=== PATIENT | male | born 1935 | race Caucasian/White ===

== ENCOUNTER → 2020-07-17 | Outpatient (CLI) | payer MEDICARE ==
[~2020-07-17] MED LIST: SIMV10 PO
== END | disposition home or self-care (01) ==
LOC: LAB SHORT 09:21 → LAB 09:21
DX: D22.62 Melanocytic nevi of left upper limb, including shoulder (principal); D48.5 Neoplasm of uncertain behavior of skin
CPT/HCPCS: 88305

== ENCOUNTER 2023-02-11 11:43 | Observation (INO) | payer MEDICARE ==
[~2023-02-11] VITALS: Ht 180.3 cm; Wt 76.5 kg
[2023-02-11] MEDS ORDERED: Acetaminophen650 M1 PO (12:17)
[2023-02-11] MEDS ORDERED: CALCIUM 600 +1 EA11 PO (12:18)
[2023-02-11] MEDS ORDERED: BISA5EC PO (12:18)
[2023-02-11] MEDS ORDERED: LIDO700A20 TOP (12:19)
[2023-02-11] MEDS ORDERED: MELA3 PO (12:19)
[2023-02-11] MEDS ORDERED: FOLI1 PO (12:19)
[2023-02-11] MEDS ORDERED: METO25ER PO (12:20)
[2023-02-11] MEDS ORDERED: MIRALAX17 GM PO (12:20)
[2023-02-11] MEDS ORDERED: MUPIROCIN1 G1 TOP (12:20)
[2023-02-11] MEDS ORDERED: SENNA LAXATIVE8.6 MG PO (12:21)
[2023-02-11] MEDS ORDERED: RAME8 PO (12:21)
[2023-02-11] MEDS ORDERED: ZOCOR20 MG PO (12:21)
[2023-02-11] MEDS ORDERED: TAMS.4ER PO (12:21)
[2023-02-11] MEDS ORDERED: RISP.25 PO (12:21)
[2023-02-11] MEDS ORDERED: B-12500 MC2 PO (12:22)
[2023-02-11] MEDS ORDERED: VITAMIN D31250 MC2 PO (12:22)
[2023-02-11] MEDS ORDERED: XARELTO20 MG PO (12:23)
[2023-02-11 13:04] LABS: BASOPHILS ABSOLUTE AUTO 0.01 K/mm3 (0.00-0.23); BASOPHILS PERCENT AUTO 0 % (0-2); EOSINOPHILS ABSOLUTE AUTO 0.05 K/mm3 (0.00-0.68); EOSINOPHILS PERCENT AUTO 1 % (0-6); Hematocrit 39.1 % (37.0-53.0); Hemoglobin 13.4 g/dL (13.5-17.5); IMMATURE GRAN ABSOLUTE AUTO 0.02 K/mm3 (0.00-0.10); IMMATURE GRAN PERCENT AUTO 0 % (0-1); LYMPHOCYTES ABSOLUTE AUTO 2.14 K/mm3 (0.84-5.20); LYMPHOCYTES PERCENT AUTO 36 % (21-46); MONOCYTES ABSOLUTE AUTO 0.48 K/mm3 (0.16-1.47); MONOCYTES PERCENT AUTO 8 % (4-13); Mean Corpuscular HGB 31.3 pg (26.0-34.0); Mean Corpuscular HGB Conc 34.3 g/dL (31.5-36.5); Mean Corpuscular Volume 91 fL (80-100); Mean Platelet Volume 10.9 fL (9.1-12.4); NEUTROPHILS ABSOLUTE AUTO 3.19 K/mm3 (1.96-9.15); NEUTROPHILS PERCENT AUTO 54 % (41-73); Platelet Count 217 K/mm3 (150-400); RDW Coefficient Variation 14.3 % (11.7-14.2); RDW Standard Deviation 47.8 fL (35.1-46.3); Red Blood Cell Count 4.28 M/mm3 (4.30-5.90); White Blood Cell Count 5.89 K/mm3 (4.00-11.30)
[2023-02-11 13:28] LABS: International Normalized Ratio 1.28; Prothrombin Time Results 13.3 Sec (9.7-11.5)
[2023-02-11 13:31] LABS: Albumin, Blood 3.4 g/dL (3.4-5.0); Albumin/Globulin Ratio 1.1 (0.8-1.8); Bilirubin, Total 0.9 mg/dL (0.1-1.0); Bun/Creatinine Ratio 20.3 (12.0-20.0); Calcium, Blood 8.8 mg/dL (8.5-10.1); Creatinine, Blood 1.18 mg/dL (0.60-1.20); Magnesium, Blood 2.1 mg/dL (1.6-2.4); Phosphorus, Blood 2.8 mg/dL (2.5-4.9); Potassium, Blood 4.1 mmol/L (3.5-5.5); Thyroid Stimulating Hormone 1.36 uIU/mL (0.360-4.800); Total Protein, Blood 6.4 g/dL (6.4-8.2)
--- NOTE | 2023-02-11 16:44 | NUR ---
REPORT RECEIVED FROM GIULIANO HESTER AT 1640. AWAITING ARRIVAL TO ROOM 304 AT THIS TIME.
[2023-02-11 17:11] VITALS: BP 183/95
[2023-02-11] MEDS ORDERED: Vitamin D1000 UNI1 PO (17:35)
--- NOTE | 2023-02-11 19:34 | NUR ---
SHIFT SUMMARY PT AXO, PLEASANT AND COOPERATIVE WITH CARE THOUGH [place]. ADMITTED THIS SHIFT. PT UP WITH 1 ASSIST, FWW AND GB. REPORT GIVEN TO PARKING GARAGE MANAGER NURSE WHO ASSUMES CARE AT THIS TIME. IV PATENT AND INFUSING PER EMAR. BED IN LOW POSITION, CALL LIGHT WITHIN REACH. BED ALARM ON FOR SAFETY. PT DENIES IGNITION SOURCES. PHOTOS OF WOUNDS IN CHART.
[2023-02-11 20:58] VITALS: BP 152/60
[2023-02-12 03:46] VITALS: BP 122/56
--- NOTE | 2023-02-12 04:43 | NUR ---
PT AOX4 AND COOPERATIVE OF CARE. PT DOING WELL AND RESTING MOST OF THE NIGHT IN BED. PT TREATED FOR BODY PAIN FROM FALLING PER EMAR. ABLE TO CALL APPROPRIATELY. WILL CONTINUE TO MONITOR.
--- NOTE | 2023-02-12 04:51 | NUR ---
IGNITION RISK ASSESSMENT COMPLETED WITH HOURLY ROUNDING NO HAZARDS FOUND.
[2023-02-12 04:57] LABS: BASOPHILS ABSOLUTE AUTO 0.01 K/mm3 (0.00-0.23); BASOPHILS PERCENT AUTO 0 % (0-2); EOSINOPHILS ABSOLUTE AUTO 0.14 K/mm3 (0.00-0.68); EOSINOPHILS PERCENT AUTO 2 % (0-6); Hematocrit 37.6 % (37.0-53.0); Hemoglobin 12.5 g/dL (13.5-17.5); IMMATURE GRAN ABSOLUTE AUTO 0.01 K/mm3 (0.00-0.10); IMMATURE GRAN PERCENT AUTO 0 % (0-1); LYMPHOCYTES PERCENT AUTO 35 % (21-46); MONOCYTES ABSOLUTE AUTO 0.84 K/mm3 (0.16-1.47); MONOCYTES PERCENT AUTO 12 % (4-13); Mean Corpuscular HGB 30.9 pg (26.0-34.0); Mean Corpuscular HGB Conc 33.2 g/dL (31.5-36.5); Mean Corpuscular Volume 93 fL (80-100); Mean Platelet Volume 11.1 fL (9.1-12.4); NEUTROPHILS ABSOLUTE AUTO 3.42 K/mm3 (1.96-9.15); NEUTROPHILS PERCENT AUTO 50 % (41-73); Platelet Count 203 K/mm3 (150-400); RDW Coefficient Variation 14.3 % (11.7-14.2); RDW Standard Deviation 49.5 fL (35.1-46.3); Red Blood Cell Count 4.04 M/mm3 (4.30-5.90); White Blood Cell Count 6.82 K/mm3 (4.00-11.30)
[2023-02-12 05:15] LABS: Albumin, Blood 2.9 g/dL (3.4-5.0); Albumin/Globulin Ratio 1.1 (0.8-1.8); Bilirubin, Total 0.7 mg/dL (0.1-1.0); Bun/Creatinine Ratio 20.5 (12.0-20.0); Creatinine, Blood 1.12 mg/dL (0.60-1.20); Globulin, Blood 2.6 g/dL (2.2-4.0); Potassium, Blood 3.7 mmol/L (3.5-5.5); Total Protein, Blood 5.5 g/dL (6.4-8.2)
[2023-02-12 07:15] VITALS: BP 140/62
--- NOTE | 2023-02-12 13:36 | NUR ---
"Spiritual care Visit | Pt. request Pt. is awake and sittin gin his recliner when he welcomes my visit. Pt. verbalizes his expectatoin to be discharged back to [facility] soon. In the mean time a Life review was facilitated. Listened to Pt. with interest, and empathy. Pt. verbalizes great support that he has from his roman catholic in [place]. Consdier matters of gabriel and belief. Pt. displays a confidant spirit and evidence of being encouraged. Prayed with Pt. Pt. verbalizes gratitude for the spiritual care visit."
--- NOTE | 2023-02-12 14:39 | NUR ---
PATIENT DISCHARGED TO [facility] ACCOMPANIED BY HIS DAUGHTER. IV SALINE LOCK AND TELEMETRY REMOVED WITHOUT INCIDENT. VERBALIZED UNDERSTANDING OF D/C INSTRUCTIONS. OFF UNIT VIA W/C AT 1436. NO PERSONAL BELONGINGS LEFT BEHIND IN ROOM.
== END 2023-02-12 14:40 | disposition home or self-care (01) ==
LOC: ER 11:43 → MEDS 11:44
PROVIDERS: Emergency Medicine; ADMIT Family Medicine
DX: R55 Syncope and collapse (principal); R58 Hemorrhage, not elsewhere classified; F03.90 Unspecified dementia, unspecified severity, without behavioral disturbance, psychotic disturbance, mood disturbance, and anxiety; I10 Essential (primary) hypertension; I48.0 Paroxysmal atrial fibrillation; E78.5 Hyperlipidemia, unspecified; Z66 Do not resuscitate; Z79.01 Long term (current) use of anticoagulants; Z79.899 Other long term (current) drug therapy
CPT/HCPCS: 36415; 70450; 70486; 70496; 71260; 72125; 74177; 80053; 83690; 83735; 84100; 84443; 84484; 85025; 85610; 85730; 86850; 86900; 86901; 90471; 90714; 90715; 93005; 93010; 96361; 96374; 96376; 97161; 97165; 99285-25; A9270; G0378; J7030; L0160; Q9967

== ENCOUNTER 2023-05-30 09:26 | Emergency (ER) | payer MEDICARE ==
[~2023-05-30] VITALS: Ht 180.3 cm; Wt 76.7 kg
[~2023-05-30 09:26] MED LIST changes: +Acetaminophen650 M1 PO; +B-12500 MC2 PO; +BISA5EC PO; +CALCIUM 600 +1 EA11 PO; +FOLI1 PO; +LIDO700A20 TOP; +MELA3 PO; +METHIMAZOLE5 M1 PO; +METO25ER PO; +MIRALAX17 GM PO; +MUPIROCIN1 G1 TOP; +RAME8 PO; +RISP.25 PO; +SENNA LAXATIVE8.6 MG PO; +TAMS.4ER PO; +VITAMIN D31250 MC2 PO; +Vitamin D1000 UNI1 PO; +XARELTO20 MG PO; +ZOCOR20 MG PO
[2023-05-30 10:34] LABS: BASOPHILS ABSOLUTE AUTO 0.01 K/mm3 (0.00-0.23); BASOPHILS PERCENT AUTO 0 % (0-2); EOSINOPHILS ABSOLUTE AUTO 0.01 K/mm3 (0.00-0.68); EOSINOPHILS PERCENT AUTO 0 % (0-6); Hematocrit 42.1 % (37.0-53.0); Hemoglobin 13.8 g/dL (13.5-17.5); IMMATURE GRAN ABSOLUTE AUTO 0.01 K/mm3 (0.00-0.10); IMMATURE GRAN PERCENT AUTO 0 % (0-1); LYMPHOCYTES ABSOLUTE AUTO 1.99 K/mm3 (0.84-5.20); LYMPHOCYTES PERCENT AUTO 27 % (21-46); MONOCYTES ABSOLUTE AUTO 0.58 K/mm3 (0.16-1.47); MONOCYTES PERCENT AUTO 8 % (4-13); Mean Corpuscular HGB 30.3 pg (26.0-34.0); Mean Corpuscular HGB Conc 32.8 g/dL (31.5-36.5); Mean Corpuscular Volume 93 fL (80-100); Mean Platelet Volume 10.8 fL (9.1-12.4); NEUTROPHILS ABSOLUTE AUTO 4.68 K/mm3 (1.96-9.15); NEUTROPHILS PERCENT AUTO 64 % (41-73); Platelet Count 261 K/mm3 (150-400); RDW Coefficient Variation 13.2 % (11.7-14.2); RDW Standard Deviation 45.1 fL (35.1-46.3); Red Blood Cell Count 4.55 M/mm3 (4.30-5.90); White Blood Cell Count 7.28 K/mm3 (4.00-11.30)
[2023-05-30 10:54] LABS: Albumin, Blood 3.1 g/dL (3.4-5.0); Albumin/Globulin Ratio 0.9 (0.8-1.8); Bilirubin, Total 0.4 mg/dL (0.1-1.0); Bun/Creatinine Ratio 24.3 (12.0-20.0); Calcium, Blood 8.8 mg/dL (8.5-10.1); Creatinine, Blood 1.11 mg/dL (0.60-1.20); Globulin, Blood 3.6 g/dL (2.2-4.0); Potassium, Blood 4.2 mmol/L (3.5-5.5); Total Protein, Blood 6.7 g/dL (6.4-8.2)
[2023-05-30 12:00] VITALS: BP 138/75
== END 2023-05-30 12:19 | disposition home or self-care (01) ==
LOC: ER 09:26
PROVIDERS: Emergency Medicine
DX: I48.0 Paroxysmal atrial fibrillation (principal); E78.5 Hyperlipidemia, unspecified; I10 Essential (primary) hypertension; Z79.01 Long term (current) use of anticoagulants; Z79.899 Other long term (current) drug therapy
CPT/HCPCS: 71045; 80053; 85025; 93005; 93010; 99285-25

== ENCOUNTER 2023-07-10 06:58 | Day surgery (SDC) | payer MEDICARE ==
[~2023-07-10] VITALS: Ht 180.3 cm; Wt 78.0 kg
[2023-07-10] VITALS (22 sets, daily range): BP systolic 117–176; BP diastolic 65–101
[2023-07-10] MEDS ORDERED: XARELTO20 MG PO (07:37)
--- NOTE | 2023-07-10 07:56 | NUR ---
History, Chart, Medications and Allergies reviewed before start of procedure. Lungs clear T/O to Auscultation. Patient confirms NPO status and agrees with scheduled surgery. Pre-Op teaching done. Pt verbalizes understanding.
--- NOTE | 2023-07-10 09:01 | NUR ---
07/10/23 0901 [facility] History, Chart, Medications and Allergies reviewed before start of procedure. MONITOR INTACT WITH CONTINUOUS PULSE OXIMETRY, CONTINUOUS END TITAL CO2, AND INTERMITTENT BLOOD PRESSURE. 3-LEAD EKG REVIEWED WITH PHYSICIAN PRIOR TO START OF PROCEDURE. O2 VIA N/C INTACT THROUGHOUT SEDATION/PROCEDURE. Bite Block Placed.
--- NOTE | 2023-07-10 09:35 | NUR ---
PT TO STEP IN AFIB HR IN 120'S-130'S. PT IS ASYMPTOMATIC, BREATHING RA, AT BEDSIDE. DR ECKERT IN COMMUNICATION C HOSPITALIST TO PLACE PT IN OBSERVATION FOR CHANGES IN CONDITION POST-PROCEDURE. PT REPORTS NO PAIN OR NAUSEA. PT REFUSES FLUIDS. NO OTHER CONCERNS, AWAITING INPATIENT BED.
== END 2023-07-10 12:00 | disposition home or self-care (01) ==
LOC: ORSCMMR 06:58 → ORD 07:30 → ORSCMMR 07:30
PROVIDERS: Internal Medicine Gastroenterology
PROC: 0D758ZZ Dilation of Esophagus, Via Natural or Artificial Opening Endoscopic (ICD-10-PCS; principal; 2023-07-10 08:45)
DX: K22.2 Esophageal obstruction (principal); I10 Essential (primary) hypertension; E78.5 Hyperlipidemia, unspecified; F03.90 Unspecified dementia, unspecified severity, without behavioral disturbance, psychotic disturbance, mood disturbance, and anxiety; I48.91 Unspecified atrial fibrillation; E05.90 Thyrotoxicosis, unspecified without thyrotoxic crisis or storm; Z79.899 Other long term (current) drug therapy
CPT/HCPCS: A9270; C1726; J2704; J7120

== ENCOUNTER 2023-12-21 23:16 | Emergency (ER) | payer MEDICARE ==
[~2023-12-21] VITALS: Ht 180.3 cm; Wt 78.5 kg
[2023-12-21 23:33] LABS: BASOPHILS ABSOLUTE AUTO 0.01 K/mm3 (0.00-0.23); BASOPHILS PERCENT AUTO 0 % (0-2); EOSINOPHILS ABSOLUTE AUTO 0.24 K/mm3 (0.00-0.68); EOSINOPHILS PERCENT AUTO 3 % (0-6); Hematocrit 43.3 % (37.0-53.0); Hemoglobin 14.8 g/dL (13.5-17.5); IMMATURE GRAN ABSOLUTE AUTO 0.02 K/mm3 (0.00-0.10); IMMATURE GRAN PERCENT AUTO 0 % (0-1); LYMPHOCYTES ABSOLUTE AUTO 3.38 K/mm3 (0.84-5.20); LYMPHOCYTES PERCENT AUTO 43 % (21-46); MONOCYTES ABSOLUTE AUTO 0.61 K/mm3 (0.16-1.47); MONOCYTES PERCENT AUTO 8 % (4-13); Mean Corpuscular HGB 31.8 pg (26.0-34.0); Mean Corpuscular HGB Conc 34.2 g/dL (31.5-36.5); Mean Corpuscular Volume 93 fL (80-100); Mean Platelet Volume 10.7 fL (9.1-12.4); NEUTROPHILS PERCENT AUTO 46 % (41-73); Platelet Count 236 K/mm3 (150-400); RDW Coefficient Variation 14.6 % (11.7-14.2); RDW Standard Deviation 50.4 fL (35.1-46.3); Red Blood Cell Count 4.65 M/mm3 (4.30-5.90); White Blood Cell Count 7.96 K/mm3 (4.00-11.30)
[2023-12-22 00:01] LABS: Albumin, Blood 3.4 g/dL (3.4-5.0); Albumin/Globulin Ratio 0.8 (0.8-1.8); Bilirubin, Total 0.4 mg/dL (0.1-1.0); Bun/Creatinine Ratio 26.3 (12.0-20.0); Calcium, Blood 9.4 mg/dL (8.5-10.1); Creatinine, Blood 1.14 mg/dL (0.60-1.20); Potassium, Blood 5.2 mmol/L (3.5-5.5); Total Protein, Blood 7.4 g/dL (6.4-8.2)
[2023-12-22] MEDS ORDERED: dilTIAZem HCL 125 MG in Dextrose 5% 100 ML IV SCH (00:10)
[2023-12-22] MEDS ORDERED: Diltiazem HCl 5 MG / ML 5ML Vial IV ONE (00:10)
[2023-12-22 02:00] VITALS: BP 127/76
== END 2023-12-22 06:05 | disposition home or self-care (01) ==
LOC: ER 23:16
PROVIDERS: Emergency Medicine
DX: I48.0 Paroxysmal atrial fibrillation (principal); Z79.899 Other long term (current) drug therapy; Z79.02 Long term (current) use of antithrombotics/antiplatelets
CPT/HCPCS: 71046; 80053; 83880; 84484; 85025; 93005; 93010; 96365; 99285-25

== ENCOUNTER 2024-01-04 16:52 | Emergency (ER) | payer MEDICARE ==
[~2024-01-04] VITALS: Ht 180.3 cm; Wt 80.3 kg
[2024-01-04] MEDS ORDERED: METO50ER PO (17:21)
[2024-01-04 17:32] LABS: BASOPHILS ABSOLUTE AUTO 0.01 K/mm3 (0.00-0.23); BASOPHILS PERCENT AUTO 0 % (0-2); EOSINOPHILS ABSOLUTE AUTO 0.01 K/mm3 (0.00-0.68); EOSINOPHILS PERCENT AUTO 0 % (0-6); Hematocrit 45.6 % (37.0-53.0); IMMATURE GRAN ABSOLUTE AUTO 0.05 K/mm3 (0.00-0.10); IMMATURE GRAN PERCENT AUTO 0 % (0-1); LYMPHOCYTES ABSOLUTE AUTO 0.43 K/mm3 (0.84-5.20); LYMPHOCYTES PERCENT AUTO 4 % (21-46); MONOCYTES ABSOLUTE AUTO 0.25 K/mm3 (0.16-1.47); MONOCYTES PERCENT AUTO 2 % (4-13); Mean Corpuscular HGB 30.8 pg (26.0-34.0); Mean Corpuscular HGB Conc 32.9 g/dL (31.5-36.5); Mean Corpuscular Volume 94 fL (80-100); Mean Platelet Volume 10.8 fL (9.1-12.4); NEUTROPHILS PERCENT AUTO 94 % (41-73); Platelet Count 209 K/mm3 (150-400); RDW Coefficient Variation 14.6 % (11.7-14.2); RDW Standard Deviation 50.7 fL (35.1-46.3); Red Blood Cell Count 4.87 M/mm3 (4.30-5.90); White Blood Cell Count 11.75 K/mm3 (4.00-11.30)
[2024-01-04 17:50] LABS: Albumin, Blood 3.6 g/dL (3.4-5.0); Albumin/Globulin Ratio 0.9 (0.8-1.8); Bilirubin, Total 0.7 mg/dL (0.1-1.0); Bun/Creatinine Ratio 25.8 (12.0-20.0); Calcium, Blood 8.6 mg/dL (8.5-10.1); Creatinine, Blood 1.2 mg/dL (0.60-1.20); Globulin, Blood 3.8 g/dL (2.2-4.0); Potassium, Blood 4.3 mmol/L (3.5-5.5); Total Protein, Blood 7.4 g/dL (6.4-8.2)
[2024-01-04 19:30] VITALS: BP 128/70
== END 2024-01-04 22:00 | disposition home or self-care (01) ==
LOC: ER 16:52
PROVIDERS: Emergency Medicine
DX: R07.9 Chest pain, unspecified (principal); Z79.899 Other long term (current) drug therapy; I48.0 Paroxysmal atrial fibrillation; I10 Essential (primary) hypertension; E78.5 Hyperlipidemia, unspecified
CPT/HCPCS: 71046; 80053; 83690; 84484; 85025; 93005; 93010; 99285-25

== ENCOUNTER → 2024-07-22 | Outpatient (CLI) | payer MEDICARE ==
[~2024-07-22] MED LIST changes: +METO50ER PO
== END | disposition home or self-care (01) ==
LOC: LAB 13:21 → LAB SHORT 13:21
DX: N39.0 Urinary tract infection, site not specified (principal)
CPT/HCPCS: 87086